=== PATIENT | male | born 1965 | race Caucasian/White ===

== ENCOUNTER → 2019-02-18 | Outpatient (CLI) | payer OTHER ==
[~2019-02-18] MED LIST: ASPIRIN81 M2 PO; CELEXA 20 MG TA20 MG PO; COUMADIN 10MG T10 M1 PO; COUMADIN 1MG TAB1 M1 PO; COZAAR 50 MG TA50 M2 PO; MULTIVITAMINS PO; TOPROL XL50 MG PO; VENTOLIN HFA 1818 GM INH
[2019-02-18 10:40] LABS: HEMATOCRIT 36.4 % (42.0-52.0); HEMOGLOBIN 12.4 gm/dL (14.0-18.0); MCH 28.5 pg (26.0-34.0); MCHC 34.1 g/dL (28.0-37.0); MCV 83.7 fL (80.0-100.0); RBC 4.35 mil/uL (4.50-6.00); WBC 3.2 thou/uL (4.0-11.0)
[2019-02-18 10:49] LABS: ALBUMIN 3.7 g/dL (3.4-5.0); CALCIUM 8.9 mg/dL (8.5-10.1); CREATININE 1.2 mg/dL (0.6-1.3); POTASSIUM 3.8 mmol/L (3.5-5.1); TOTAL BILIRUBIN 0.7 mg/dL (<0.1-1.0); TOTAL PROTEIN 7.6 g/dL (6.4-8.2)
== END ==
LOC: M.LAB 10:15
PROVIDERS: Radiology Radiation Oncology
DX: D44.7 Neoplasm of uncertain behavior of aortic body and other paraganglia (principal)

== ENCOUNTER → 2019-02-21 | Outpatient (CLI) | payer OTHER ==
--- NOTE | ~2019-02-21 | ONC ---
[address] [address] RADIATION ONCOLOGY NOTE Name: ARENAS,SEBASTIANLOLI HEARTY Room: [facility]#: [id number] Admission: 02/21/19 Attend Phys: Howie Urias MD Discharge: Date of : 69 Report #: [id number] THIS REPORT FOR: //name// CC: Howie Newsome DATE OF SERVICE: 02/21/2019 [facility] phone is [phone]. REFERRING PHYSICIANS: Dr. Rohini Pittman, Dr. Darron Newsome, Dr. Jennings, Dr. Griffith from G[facility], Dr. Susanna Phelps, Dr. Alban Kingsley. 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 Radiation treatments were completed on 01/07/2015. INTERVAL NOTE: The patient is eating a regular diet. He is edentulous. His complaints are that he has some issues with swallowing. It takes a while to chew his food and to swallow it. MEDICATIONS: At this time include aspirin, warfarin, losartan, Lyrica and Flomax. 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 He does not smoke cigarettes. REVIEW OF SYSTEMS: RESPIRATORY: Breathing was baseline. He was not short of breath during his followup appointment. MUSCULOSKELETAL: He has good range of motion of his upper extremities. PHYSICAL EXAMINATION: VITAL SIGNS: The patient weighed 193.6 pounds, he was 175.6 pounds in 12/2016, blood pressure was 128/60, oxygen saturation was 97%, pulse 49 and respirations 16. LYMPH NODES: He had no palpable cervical or supraclavicular lymphadenopathy. HEAD, EYES, EARS, NOSE AND THROAT: Mouth had no suspicious visible lesions or suspicious palpable lesions. The patient is edentulous. HEART: Had a regular rate and rhythm without murmur. LUNGS: Clear to auscultation. LABORATORY DATA: From 02/18/2019, white blood cell count was 3.2, hemoglobin was 12.4, platelets were 333,000. TSH was 1.142. Sodium 141, potassium 3.8, BUN 18 and creatinine 1.2, calcium was 8.9 and ALT [place] 24. [place] [address] RADIATION ONCOLOGY NOTE Name: ARENASSEBASTIANLOLI WALSH Room: [facility]#: [id number] Admission: 02/21/19 Attend Phys: Howie Urias MD Discharge: Date of : 69 Report #: [id number] ASSESSMENT AND PLAN: 1. History of treated paraganglioma, has been stable on his previous scan, so an updated neck and chest CT will be ordered and the patient will be asked to follow up with me afterwards. 2. Anemia. The patient's anemia has been improving, which correlates to looks like he has also improved malnutrition. 3. Mild dysphagia - this may be due to mild esophageal stricture. He has seen Dr. Griffith from Gastroenterology in the past, so he will be referred back to him to see if he would benefit from esophageal dilation. 4. Hypertension. The patient is on losartan that is managed by his referring physicians. Thank you for allowing me to participate in the care of this patient. By: [id number] Urias MD /nt
== END ==
LOC: M.RTH 05:16
DX: Z08 Encounter for follow-up examination after completed treatment for malignant neoplasm (principal); R13.10 Dysphagia, unspecified; D64.9 Anemia, unspecified; I10 Essential (primary) hypertension; Z85.89 Personal history of malignant neoplasm of other organs and systems

== ENCOUNTER → 2019-04-16 | Outpatient (CLI) | payer OTHER ==
[2019-04-16 07:28] LABS: HEMATOCRIT 37.7 % (42.0-52.0); MCH 28.8 pg (26.0-34.0); MCHC 34.6 g/dL (28.0-37.0); MCV 83.3 fL (80.0-100.0); MPV 7.9 fl. (7.2-11.1); RBC 4.53 mil/uL (4.50-6.00); RDW-CV 14.1 % (10.5-14.5); WBC 3.1 thou/uL (4.0-11.0)
[2019-04-16 07:40] LABS: CALCIUM 8.4 mg/dL (8.5-10.1); CREATININE 1.2 mg/dL (0.6-1.3)
== END ==
LOC: M.LAB 02-21 14:37
PROVIDERS: Radiology Radiation Oncology
DX: J34.1 Cyst and mucocele of nose and nasal sinus (principal); M50.31 Other cervical disc degeneration, high cervical region; D44.7 Neoplasm of uncertain behavior of aortic body and other paraganglia; I51.7 Cardiomegaly

== ENCOUNTER → 2019-04-18 | Outpatient (CLI) | payer OTHER ==
--- NOTE | ~2019-04-18 | ONC ---
[address] [address] RADIATION ONCOLOGY NOTE Name: SEBASTIAN ARENAS Room: [facility]#: [id number] Admission: 04/18/19 Attend Phys: Howie Urias MD Discharge: Date of : 69 Report #: [id number] THIS REPORT FOR: //name// CC: Howie Newsome DATE OF SERVICE: 04/18/2019 RADIATION ONCOLOGY FOLLOWUP NOTE REFERRING PHYSICIANS: Dr. Darron Newsome, Dr. Jennings, Dr. Griffith, Dr. Rohini Pittman and Susanna Phelps MD. [facility] phone is [phone]. 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 Radiation treatments were completed on 01/07/2015. INTERVAL NOTE: The patient is eating a regular diet. He underwent an esophageal dilation yesterday. They also recommended that he go ahead and get dentures. He is edentulous. He said that on of 04/25/[address] Griffith, his cargo agent will perform endoscopy and possibly also colonoscopy. MEDICATIONS: Include aspirin, warfarin, losartan, Lyrica, and Flomax. 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 He does not smoke cigarettes. REVIEW OF SYSTEMS: RESPIRATORY: Breathing was baseline. He was not short of breath during his followup appointment. MUSCULOSKELETAL: He had good range of motion of his upper extremities. PHYSICAL EXAMINATION: VITAL SIGNS: The patient weighed 196.2 pounds on 04/18/2019, 193.6 pounds on 02/21/2019 and on 04/18/2019, blood pressure is 115/70, pulse 53, respirations 18, and oxygen saturation 94%. LYMPH NODES: The patient had no palpable cervical or supraclavicular lymphadenopathy. HEAD, EYES, EARS, NOSE, AND THROAT: Mouth had no suspicious visible lesions or suspicious palpable lesions. The patient is edentulous. HEART: Had a regular rate and rhythm without murmur. LUNGS: Clear to auscultation. LABORATORY DATA: From 04/16/2019, sodium 140, potassium 4.0, BUN 19, [place] [address] RADIATION ONCOLOGY NOTE Name: ARENASSEBASTIANLOLI WALSH Room: [facility]#: [id number] Admission: 04/18/19 Attend Phys: Howie Urias MD Discharge: Date of : 69 Report #: [id number] 1.2. White blood count 3.1, hemoglobin 13.0, platelets 163,000. RADIOLOGIC DATA: The patient had a neck and chest CT on 04/16/2019 that showed a stable hypervascular left neck mass consistent with his paraganglioma measuring 2.4 x 2.2 x 3.8 cm as well as a stable calcified granuloma measuring 1 cm in the left apex. ASSESSMENT AND PLAN: 1. History of treated paraganglioma, the paraganglioma is stable. The patient had lab work ordered and around 10/2019 he is asked to schedule a followup appointment to see me afterwards. 2. Anemia. As the patient's anemia continues to improve, his hemoglobin previously was 12.4 and now it is 13.0, so probably continued to improve with the patient's improved nutrition. 3. Hypertension. The patient takes losartan and that is managed by his referring physicians. Thank you for allowing me to participate in the care of this patient. By: [id number] Urias MD /nt
== END ==
LOC: M.RTH 04:03
DX: Z08 Encounter for follow-up examination after completed treatment for malignant neoplasm (principal); I10 Essential (primary) hypertension; D64.9 Anemia, unspecified; Z79.01 Long term (current) use of anticoagulants; Z79.82 Long term (current) use of aspirin; Z79.899 Other long term (current) drug therapy; Z86.03 Personal history of neoplasm of uncertain behavior